=== PATIENT | male | born 1980 | race Caucasian/White ===

== ENCOUNTER 2023-11-02 08:23 | Emergency (ER) | payer MEDICAID ==
[~2023-11-02] VITALS: Ht 177.8 cm; Wt 81.0 kg
[2023-11-02 08:25] VITALS: O2SAT 99
[2023-11-02 10:44] VITALS: BP 135/72; PULSE 55; RESP 16; TEMP 98.5
== END 2023-11-02 10:44 | disposition home or self-care (01) ==
LOC: ER 08:23
DX: M25.80 Other specified joint disorders, unspecified joint (principal)
CPT/HCPCS: 99281